=== PATIENT | female | born 1945 | race Caucasian/White ===

== ENCOUNTER 2018-03-23 15:11 | Emergency (ER) | payer OTHER ==
[~2018-03-23] VITALS: Ht 157.5 cm; Wt 72.6 kg
--- NOTE | 2018-03-23 16:05 | ED AMS/SEIZURE/WEAK/DIZZY ---
History of Present Illness General Chief Complaint: General Adult Stated Complaint: VERY EXHAUSTED, DIZZY, JUST DOESNT FEEL RIGHT Source: patient, family Exam Limitations: no limitations Vital Signs & Intake/Output Vital Signs & Intake/Output Vital Signs Date Time Temp Pulse Resp B/P B/P Pulse O2 O2 Flow FiO2 Mean Ox Delivery Rate 03/23 1516 97.6 76 18 174/72 98 Room Air Allergies Coded Allergies: morphine (Mild, NAUSEA, VERTIGO 03/23/18) Uncoded Allergies: Z-PACK (Intermediate, NAUSEA, ABDOMINAL PAIN 03/23/18) Triage Note: 72 YO FEMALE TO TRIAGE C/O "FEELING TIRED" STATES SHE HAD DIVERTICULITIS AND THEN THE FLU IN DECEMBER. STATES "I HAVENT REGAINED ANY STREGNTH SINCE THEN" REPORTS EATING AND DRINKING NORMALLY. REPORTS SHE HAD SOME DIZZINESS THIS AM BUT ITS BETTER AT THIS TIME. Triage Nurses Notes Reviewed? yes HPI: 72F PMH HTN, hypothyroidism with 2 days of feeling completely exhausted, weak, and lightheaded. She was diagnosed with diverticulitis in [facility] and treated, then influenza 3 weeks ago and did not take Tamiflu. She also had a viral URI last week. Today she feels very weak and has episodes of "fogginess." She has no focal neurological deficits. She is eating and drinking well, urinating well and having normal BM. She denies headache, nausea, vomiting, vision changes, hearing changes, confusion, fever, chills, chest pain, SOB, abdominal pain, diarrhea, dysuria, extremity weakness/numbness/paresthesia. Past History Travel History Traveled to [place] past 21 day No Medical History Any Pertinent Medical History? see below for history Neurological: NONE EENT: NONE Cardiovascular: hypertension, hyperlipidemia Respiratory: NONE Gastrointestinal: diverticulitis Hepatic: NONE Renal: NONE Musculoskeletal: NONE Psychiatric: NONE Endocrine: hypothyroidism Blood Disorders: NONE Cancer(s): NONE Surgical History Surgical History: non-contributory Psychosocial History What is your primary language Serbian Tobacco Use: Quit >30 days ago Family History Hx Contributory? No Review of Systems Review of Systems Constitutional: Reports: no symptoms. EENTM: Reports: no symptoms. Respiratory: Reports: no symptoms. Cardiovascular: Reports: no symptoms. GI: Reports: no symptoms. Genitourinary: Reports: no symptoms. Musculoskeletal: Reports: no symptoms. Skin: Reports: no symptoms. Neurological/Psychological: Reports: no symptoms. Hematologic/Endocrine: Reports: no symptoms. Immunologic/Allergic: Reports: no symptoms. All Other Systems: Reviewed and Negative Physical Exam Physical Exam General Appearance: well developed/nourished, no apparent distress Head: atraumatic, normal appearance Eyes: Bilateral: normal appearance. Ears, Nose, Throat: normal pharynx, normal ENT inspection, hearing grossly normal, normal pharynx, normal ear canals and TM Neck: normal inspection, supple, full range of motion Respiratory: normal breath sounds, chest non-tender, no respiratory distress Cardiovascular: regular rate/rhythm Gastrointestinal: soft, non-tender Back: normal inspection, normal range of motion Extremities: normal range of motion Neurologic/Psych: awake, alert, oriented x 3, normal mood/affect Skin: intact, normal color, warm/dry Lymphatic: no anterior cervical shanique Core Measures ACS in differential dx? No CVA/TIA Diagnosis No Sepsis Present: No Sepsis Focused Exam Completed? No Progress Differential Diagnosis: arrythmia, alcohol intoxication, anemia, benign positional vertigo, CVA/stroke, dehydration, drug intoxication, encephalitis, electrolyte imbalance, GI bleed, hypoglycemia, hypoxia, intracranial Hem., intracranial mass/tumor, labrynthitis, meningitis, Meniere's disease, migraine GROSS, multiple sclerosis, pneumonia, postural hypotension, presyncope, post- traumatic vertigo, sepsis, seizure disorder, subarachnoid Hem., UTI/pyelo, vertebrobasilar insuff Plan of Care: Orders Procedure Date/time Status URINALYSIS 03/23 160 Complete THYROID STIMULATING HORMONE 03/23 1605 Complete TROPONIN LEVEL 03/23 1605 Complete COMPREHENSIVE METABOLIC PANEL 03/23 1605 Complete CBC WITHOUT DIFFERENTIAL 03/23 1605 Complete EKG 03/23 1516 Active Laboratory Tests 03/23/18 1634: Urine Color YEL, Urine Clarity CLEAR, Urine pH 6.5, Ur Specific [place] 1.015, Urine Protein NEG, Urine Ketones NEG, Urine Nitrite NEG, Urine Bilirubin NEG, Urine Urobilinogen 0.2, Ur Leukocyte Esterase NEG, Ur Microscopic SEDIMENT EXAMINED, Urine Bacteria RARE H, Urine Hemoglobin TRACE-LYSED, Urine Glucose NEG 03/23/18 1617: Anion Gap 12, Estimated GFR > 60, BUN/Creatinine Ratio 26.0 H, Glucose 100 H, Calcium 9.6, Total Bilirubin 0.9, AST 20, ALT 29, Alkaline Phosphatase 67, Troponin I < 0.01, Total Protein 6.9, Albumin 4.5, Globulin 2.4, Albumin/ Globulin Ratio 1.9, TSH 1.300, CBC w Diff NO MAN DIFF REQ, RBC 5.18, MCV 83.0, MCH 28.3, MCHC 34.0, RDW 13.4, MPV 7.9, Gran % 69.1, Lymphocytes % 22.5, Monocytes % 6.4, Eosinophils % 1.6, Basophils % 0.4, Absolute Granulocytes 4.0, Absolute Lymphocytes 1.3, Absolute Monocytes 0.4, Absolute Eosinophils 0.1, Absolute Basophils 0 Labs and EKG normal. Patient will be discharged home and will follow up with Dr. Ulloa on Monday. Initial ED EKG: NSR, no ST T wave changes Departure Departure Disposition: HOME OR SELF CARE Condition: Stable Clinical Impression Primary Impression: Viral syndrome Referrals: Sharon Biggs APRN (PCP/Family) Additional Instructions: Follow up with Dr. Ulloa. If you notice any new or worsening symptoms, return to ER. Departure Forms: Customer Survey General Discharge Information
[2018-03-23 16:45] LABS: ABSOLUTE BASOPHIL COUNT 0 /CUMM (0.0-0.2); ABSOLUTE EOSINOPHIL COUNT 0.1 /CUMM (0.0-0.7); ABSOLUTE LYMPH COUNT 1.3 /CUMM (1.2-3.4); ABSOLUTE MONOCYTE COUNT 0.4 /CUMM (0.10-0.60); BASOPHIL % 0.4 % (0.0-2.0); EOSINOPHIL % 1.6 % (0-5); GRANULOCYTE % 69.1 % (42.2-75.2); MEAN CORPUSCULAR HGB 28.3 PG (27.0-31.0); MEAN PLATELET VOLUME 7.9 FL (7.4-10.4); PLATELET COUNT 224 /CUMM (130-400); RBC DISTRIBUTION WIDTH 13.4 % (11.5-14.5); RED BLOOD CELL CT 5.18 /CUMM (4.20-5.40); WHITE BLOOD CELL COUNT 5.8 /CUMM (4.8-10.8)
[2018-03-23 17:29] VITALS: BP 151/68
== END 2018-03-23 17:38 ==
LOC: ERH 15:11
PROVIDERS: Internal Medicine
DX: B34.9 Viral infection, unspecified (principal)
CPT/HCPCS: 81001; 93005; 93010